=== PATIENT | male | born 1970 | race African-American/Black ===

== ENCOUNTER → 2018-05-07 | Outpatient (CLI) | payer OTHER ==
[~2018-05-07] MED LIST: IOHEXOL 350 MG/ML 100 ML (OMNIPAQUE 350) VIAL IV ONE; NS 250 ML (IVPB) BAG IV ONE
[2018-05-07 09:32] LABS: BUN/CREATININE RATIO 12; CREATININE SERUM 1.49 MG/DL (0.60-1.30); GFR ESTIMATED > 60
--- NOTE | 2018-05-07 10:16 | Diagnostic Imaging Report ---
PROCEDURE: CT chest with contrast only. TECHNIQUE: Multiple contiguous axial images were obtained through the chest after administration of intravenous contrast. INDICATION: Sarcoidosis. COMPARISON: I have no previous. FINDINGS: There is mild bilateral partially calcified perihilar lymphadenopathy. The largest partially calcified node on the right is 1.8 x 1.2 cm. On the left, 1.6 x 1.2 cm. Some shotty subcentimeter superior mediastinal nodes perivascular present. No right paratracheal adenopathy. No pleural or pericardial effusion. There is a tiny hiatal hernia. The visualized upper abdomen nonacute with the spleen appearing nonfocal where visualized. Some mild air trapping in this patient. No substantial bronchiectasis. Some scarring versus subsegmental atelectasis in the lateral lung bases greater right. No findings suggestive of pneumonia. IMPRESSION: Mild partially calcified perihilar adenopathy. No bronchiectasis. Scarring versus subpleural atelectasis in the lung bases. Mild air trapping noted. No effusion or pneumothorax. Dictated by: Dictated on workstation # [id number]
== END ==
LOC: RAD 08:22
PROVIDERS: ATTEND Nurse Practitioner Family
DX: D86.9 Sarcoidosis, unspecified (principal)
CPT/HCPCS: 36415; 71260; 82565; 84520

== ENCOUNTER → 2021-01-17 | Outpatient (CLI) | payer OTHER ==
--- NOTE | 2021-01-17 09:45 | Diagnostic Imaging Report ---
EXAMINATION: CT Chest without contrast. TECHNIQUE: Multiple contiguous axial images were obtained through the chest without the use of intravenous contrast. All CT scans use one or more of the following dose optimizing techniques: automated exposure control, MA and/or KvP adjustment based on a patient size and exam type, or iterative reconstruction. HISTORY: Kidney transplant evaluation. COMPARISON: CT chest 05/07/2018 FINDINGS: Thyroid: The thyroid is normal. Mediastinum: Heart size is normal without significant pericardial effusion. The aorta is normal in caliber. There are multiple prominent mediastinal lymph nodes which are not pathologically enlarged. Multiple calcified hilar lymph nodes. Lungs and airways: Stable groundglass opacities within the right upper lobe with adjacent areas of bronchiectasis. Stable atelectasis or consolidation within the right lower lobe. Additional scattered areas of bronchiectasis and scarring. No pleural effusion or pneumothorax. No suspicious pulmonary lesion. The airways are normal. Upper abdomen: There are 2 hypoattenuating lesions within the right hepatic lobe which are similar in appearance to 05/07/2018. Mild amount of ascites. Musculoskeletal: No suspicious osseous lesion or compression fracture. IMPRESSION: 1. Stable areas of scarring and bronchiectasis within both lungs which has not significantly changed from 05/07/2018. 2. No other acute abnormality in the chest. 3. Stable hypoattenuating lesions within the right hepatic lobe compared to 05/07/2018. Consider further evaluation with CT or MRI of the abdomen with IV contrast, renal mass protocol. Dictated by: Dictated on workstation # [id number]
== END ==
LOC: RAD 09:15
PROVIDERS: ATTEND Internal Medicine Critical Care Medicine
DX: Z13.83 Encounter for screening for respiratory disorder NEC (principal)
CPT/HCPCS: 71250